=== PATIENT | male | born 1985 | race Caucasian/White ===

== ENCOUNTER 2018-08-25 09:48 | Emergency (ER) | payer BC ==
--- NOTE | 2018-08-25 10:41 | XRAY Report ---
Reason: pain with ambulation Procedure Date: 08/25/2018 Accession Number: [id number] / [id number] Procedure: XR - Ankle 3 View RT CPT Code: FULL RESULT: EXAM: RIGHT ANKLE RADIOGRAPHY EXAM DATE: 08/25/2018 10:12 AM. CLINICAL HISTORY: Right ankle pain with ambulation. COMPARISON: None. TECHNIQUE: 3 views. FINDINGS: Bones: Normal. No fractures or bone lesions. Joints: Normal. No effusion. No subluxations. The ankle mortise is normally aligned. Soft Tissues: Normal. No soft tissue swelling. IMPRESSION: Normal ankle radiography. [facility]
--- NOTE | 2018-08-25 11:06 | ED Physician Documentation ---
PD HPI LOWER EXT INJURY - Stated complaint Stated Complaint: RT ANKLE PAIN - Chief complaint Chief Complaint: Ext Problem - History obtained from History obtained from: Patient - History of Present Illness PD HPI LOW EXT INJURY LOCATION: Right, Ankle Type of injury: Other (not aware of injury. Does do weight lifting and lifts, so pressure on ankles, but did not feel abrupt time of onset.). No: Fall, Twist, Blunt / blow Timing - onset: How many days ago (2) Timing - duration: Days (2) Timing - details: Gradual onset, Still present Worsened by: Moving, Palpating Associated symptoms: Swelling, Discolored (mild redness today). No: Weakness, Numbness Contributing factors: No: Prior ortho surgery Similar symptoms before: Has not had sx before Recently seen: Not recently seen (no recent dental work, skin abscesses, other problems.) Review of Systems Constitutional: denies: Fever Nose: denies: Rhinorrhea / runny nose, Congestion Throat: denies: Sore throat Respiratory: denies: Cough Skin: denies: Rash, Abrasion (s), Laceration (s) PD PAST MEDICAL HISTORY - Past Medical History Past Medical History: No Cardiovascular: None Respiratory: None Neuro: None Endocrine/Autoimmune: None GI: None : None HEENT: None Psych: None Musculoskeletal: None Derm: None - Past Surgical History Past Surgical History: No - Present Medications Home Medications: Ambulatory Orders Medication Instructions Recorded Confirmed Dexamethasone [Decadron] 4 mg PO DAILY #5 tablet 08/25/18 Hydrocodone/Acetaminophen [[place] 1 each PO Q6H PRN #15 tablet 08/25/18 5-325 Tablet] Naproxen 500 mg PO BID #20 tablet 08/25/18 - Allergies Allergies/Adverse Reactions: Allergies Allergy/AdvReac Type Severity Reaction Status Date / Time No Known Drug Allergies Allergy Verified 08/25/18 09:56 - Social History Does the pt smoke?: No Smoking Status: Never smoker Does the pt drink ETOH?: Yes ETOH Use: Wine Does the pt have substance abuse?: No - Immunizations Immunizations are current?: Yes - POLST Patient has POLST: No PD ED PE NORMAL - Vitals Vital signs reviewed: Yes - General General: Alert and oriented X 3, No acute distress, Well developed/nourished - Derm Derm: Normal color, Warm and dry - Extremities Extremities: No edema, No calf tenderness / cord, Other (right ankle with medial tenderness posterior and inferior to malleolus with some local swelling and redness. No skin sores. ) Results - Vitals Vitals: Vital Signs - 24 hr 08/25/18 08/25/18 09:54 11:43 Temperature 36.0 C L 36.9 C Heart Rate 75 67 Respiratory 16 12 Rate Blood Pressure 133/80 H 121/85 H O2 Saturation 100 98 Oxygen O2 Source Room air Departure - Departure Disposition: 01 Home, Self Care Clinical Impression: Ankle pain, right Qualifiers: Chronicity: acute Qualified Code(s): M25.571 - Pain in right ankle and joints of right foot Condition: Stable Record reviewed to determine appropriate education?: Yes Instructions: ED Joint Pain Prescriptions: Dexamethasone [Decadron] 4 mg PO DAILY #5 tablet Hydrocodone/Acetaminophen [[place] 5-325 Tablet] 1 each PO Q6H PRN #15 tablet PRN Reason: Pain Naproxen 500 mg PO BID #20 tablet Comments: Consider possibilities of some tendinitis around the ankle which is typically will slower onset and offset of inflammation (as compared to an acute strain). Other consideration would be an episodic gout inflammation. There does not seem to be enough fluid there to really aspirate it for better diagnosis and and a single episode would not necessarily mean any change in diet or added medications and so therefore is okay if we do not have a firm diagnosis. It does not seem infectious at this time but recheck if you do have fevers, increasing redness, expanding areas of pain. At this point use crutches for nonweightbearing or partial weightbearing until improved. Use anti-inflammatories of naproxen and Decadron (nonsteroidal and steroidal). Add Tylenol or hydrocodone as needed for pain. This would be the treatment for strain, tendinitis, gout, etc. No particular follow-up needed if you improve over several days and are better. Discharge Date/Time: 08/25/18 11:51
[2018-08-25] MEDS ORDERED: HYDROcod/ACETAM 5/325 MG TABLET PO STA (11:21)
[2018-08-25] MEDS ORDERED: DEXAMETHASONE 10 MG/ML VIAL PO STA (11:21)
[2018-08-25] MEDS ORDERED: NAPROXEN 250 MG TABLET PO STA (11:21)
[2018-08-25] MEDS ORDERED: CHERRY SYRUP 10 ML UDC PO ONE (11:31)
[2018-08-25 11:44] VITALS: BP 121/85
== END 2018-08-25 11:51 | disposition home or self-care (01) ==
LOC: ED 09:48
DX: M25.571 Pain in right ankle and joints of right foot (principal); M25.471 Effusion, right ankle
CPT/HCPCS: 73610; 99283; A9270